=== PATIENT | female | born 1980 | race American Indian/Alaskan Native ===

== ENCOUNTER 2018-02-02 17:40 | Emergency (ER) | payer SELFPAY ==
[2018-02-02 20:02] VITALS: BP 134/54
[2018-02-02 20:21] LABS: Basophils # (Auto) 0.1 K/mm3 (0.0-0.1); Basophils % (Auto) 0.4 % (0.0-1.8); Eosinophils # (Auto) 0.1 K/mm3 (0.0-0.4); Eosinophils % (Auto) 0.7 % (0.0-4.3); Hematocrit 35.4 % (30.3-42.9); Hemoglobin 11.2 gm/dl (10.1-14.3); Lymphocytes # (Auto) 2.5 K/mm3 (1.2-5.4); Mean Corpuscular HGB Conc 32 % (30-34); Mean Corpuscular Volume 79 fl (79-97); Monocytes # (Auto) 0.6 K/mm3 (0.0-0.8); Monocytes % (Auto) 5.1 % (0.0-7.3); Platelet Count 348 K/mm3 (140-440); Red Blood Count 4.47 M/mm3 (3.65-5.03); Red Cell Distribution Width 16.5 % (13.2-15.2)
[2018-02-02 20:27] LABS: Mean Corpuscular Hemoglobin 25 pg (28-32)
[2018-02-02] MEDS ORDERED: ZOFRAN ODT PO ONE (20:33)
[2018-02-02] MEDS ORDERED: PERCOCET 5/325 PO ONE (20:33)
[2018-02-02 20:35] LABS: Alanine Aminotransferase 13 units/L (7-56); BUN/Creatinine Ratio 16; Blood Urea Nitrogen 11 mg/dL (7-17); Calcium 8.7 mg/dL (8.4-10.2); Hemolysis Index 9
--- NOTE | 2018-02-02 20:40 | Emergency Department Report ---
ED Abdominal Pain HPI - General Chief Complaint: Abdominal Pain Stated Complaint: N/V Time Seen by Provider: 02/02/18 20:25 Source: patient Mode of arrival: Ambulatory Limitations: No Limitations - History of Present Illness Initial Comments: Ms. William is a healthy 37-year-old female who presents with 6 days of left upper quadrant or left lower quadrant abdominal cramping. She states that the pain feels like abdominal cramping. Last menstrual period January 06. Denies fever, vomiting, diarrhea, constipation. Last normal bowel movement 2 days ago. No history of abdominal surgeries. MD Complaint: abdominal pain -: Gradual, days(s) (6) Location: LUQ, LLQ Radiation: none Severity: moderate Severity scale (0 -10): 7 Quality: cramping Consistency: constant Improves With: nothing Worsens With: nothing Associated Symptoms: denies: nausea, vomiting, diarrhea, fever, chills, constipation, dysuria, anorexia, syncope - Related Data Allergies Allergy/AdvReac Type Severity Reaction Status Date / Time No Known Allergies Allergy Unverified 02/02/18 19:55 ED Review of Systems ROS: Stated complaint: N/V Other details as noted in HPI Comment: All other systems reviewed and negative Respiratory: denies: cough Cardiovascular: denies: chest pain Gastrointestinal: abdominal pain. denies: nausea, vomiting ED Past Medical Hx - Past Medical History Previous Medical History?: Yes Additional medical history: gestation DM - Surgical History Past Surgical History?: No - Social History Smoking Status: Current Every Day Smoker Substance Use Type: None ED Physical Exam - General Limitations: No Limitations General appearance: alert, in no apparent distress - Head Head exam: Present: atraumatic, normocephalic - Eye Eye exam: Present: normal appearance - ENT ENT exam: Present: mucous membranes moist - Neck Neck exam: Present: normal inspection - Respiratory Respiratory exam: Present: normal lung sounds bilaterally. Absent: respiratory distress, wheezes, rales, rhonchi - Cardiovascular Cardiovascular Exam: Present: regular rate, normal rhythm, normal heart sounds. Absent: systolic murmur, diastolic murmur, rubs, gallop - GI/Abdominal GI/Abdominal exam: Present: soft, normal bowel sounds. Absent: distended, tenderness, guarding, rebound - Extremities Exam Extremities exam: Present: normal inspection - Back Exam Back exam: Present: normal inspection - Neurological Exam Neurological exam: Present: alert, oriented X3 - Psychiatric Psychiatric exam: Present: normal affect, normal mood - Skin Skin exam: Present: warm, dry, intact, normal color. Absent: rash ED Course Vital Signs 02/02/18 19:55 Temperature 98.5 F Pulse Rate 62 Respiratory 20 Rate Blood Pressure 134/54 O2 Sat by Pulse 100 Oximetry ED Medical Decision Making - Lab Data Result diagrams: 02/02/18 20:11 02/02/18 20:11 Laboratory Results - last 24 hr 02/02/18 02/02/18 02/02/18 20:11 20:11 20:11 WBC 12.0 H RBC 4.47 Hgb 11.2 Hct 35.4 MCV 79 MCH 25 L MCHC 32 RDW 16.5 H Plt Count 348 Lymph % (Auto) 21.0 [place] % (Auto) 5.1 Eos % (Auto) 0.7 Baso % (Auto) 0.4 Lymph # 2.5 [place] # 0.6 Eos # 0.1 Baso # 0.1 Seg Neutrophils % 72.8 H Seg Neutrophils # 8.7 H Sodium 137 Potassium 3.9 Chloride 97.4 L Carbon Dioxide 25 Anion Gap 19 BUN 11 Creatinine 0.7 Estimated GFR > 60 BUN/Creatinine Ratio 16 Glucose 120 H Calcium 8.7 Total Bilirubin 0.70 AST 12 ALT 13 Alkaline Phosphatase 86 Total Protein 8.3 H Albumin 4.0 Albumin/Globulin Ratio 0.9 HCG, Qual Negative Urine Color Urine Turbidity Urine pH Ur Specific [place] Urine Protein Urine Glucose (UA) Urine Ketones Urine Blood Urine Nitrite Urine Bilirubin Urine Urobilinogen Ur Leukocyte Esterase Urine WBC (Auto) Urine RBC (Auto) U Epithel Cells (Auto) Urine Mucus 02/02/18 21:18 WBC RBC Hgb Hct MCV MCH MCHC RDW Plt Count Lymph % (Auto) [place] % (Auto) Eos % (Auto) Baso % (Auto) Lymph # [place] # Eos # Baso # Seg Neutrophils % Seg Neutrophils # Sodium Potassium Chloride Carbon Dioxide Anion Gap BUN Creatinine Estimated GFR BUN/Creatinine Ratio Glucose Calcium Total Bilirubin AST ALT Alkaline Phosphatase Total Protein Albumin Albumin/Globulin Ratio HCG, Qual Urine Color Yellow Urine Turbidity Clear Urine pH 6.0 Ur Specific [place] 1.019 Urine Protein <15 mg/dl Urine Glucose (UA) Neg Urine Ketones Tr Urine Blood Sm Urine Nitrite Neg Urine Bilirubin Neg Urine Urobilinogen < 2.0 Ur Leukocyte Esterase Sm Urine WBC (Auto) 12.0 H Urine RBC (Auto) 5.0 U Epithel Cells (Auto) 1.0 Urine Mucus Few Vital Signs - 24 hr 02/02/18 19:55 Temperature 98.5 F Pulse Rate 62 Respiratory 20 Rate Blood Pressure 134/54 O2 Sat by Pulse 100 Oximetry - EKG Data 02/02/18 23:27 Ms. William presents with left upper quadrant and left lower quadrant abdominal pain. Differential diagnosis included diverticulitis versus gastritis versus peptic ulcer disease. Unfortunately missed court and eloped from the ED prior to CT. Critical care attestation.: If time is entered above; I have spent that time in minutes in the direct care of this critically ill patient, excluding procedure time. ED Disposition Clinical Impression: Abdominal pain Disposition: [id number] LEFT AGAINST MED ADVICE Is pt being admited?: No Does the pt Need Aspirin: No Condition: Stable Instructions: Abdominal Pain (ED) Referrals: SERG JONES MD [Primary Care Provider] - 3-5 Days Forms: AMA Form Time of Disposition: 23:28
[2018-02-02 21:50] LABS: Bilirubin,Urine NEG (Negative); Blood,Urine SM (Negative); Color,Urine Yellow (Yellow); Mucus,Urine FEW /HPF; Protein,Urine <15 mg/dL mg/dL (Negative); Urobilinogen,Urine < 2.0 mg/dL (<2.0)
== END 2018-02-02 23:19 | disposition left against medical advice (07) ==
LOC: ED 17:40
DX: R10.32 Left lower quadrant pain (principal); R10.12 Left upper quadrant pain; F17.200 Nicotine dependence, unspecified, uncomplicated
CPT/HCPCS: 36415; 80053; 81001; 84703; 85025; 99283; Q0162